=== PATIENT | male | born 1995 | race Hispanic/Latino ===

== ENCOUNTER 2017-04-23 13:34 | Emergency (ER) | payer BC ==
[2017-04-23 14:01] LABS: Bilirubin Small (Negative); Blood, Urine Negative (Negative); Glucose, Urine (Dipstick) Negative (Negative); Ketone, Urine Trace mg/dL (Negative); Nitrite Negative (Negative); Protein, Urine (Dipstick) 30 mg/dL (Neg-Trace)
[2017-04-23 14:06] LABS: Hyaline Casts/LPF 0-3 HYALINE CAST LPF (0-3 Hyaline); RBC/HPF 0-3 HPF (0-3); Sperm/HPF Rare HPF (None Seen); Squamous Epithelial 0-3 HPF (0-3); WBC/HPF 0-3 HPF (0-3)
--- NOTE | 2017-04-23 14:53 | ULT ---
TESTICULAR ULTRASOUND SCROTAL ULTRASOUND: History: Left testicular and scrotal pain. Technique: Multiplanar grayscale and color doppler images were obtained in a bilateral testicular/sc rotal ultrasound. Spectral analysis of the doppler waveforms were performed. FINDINGS: The testicles were normal in echogenicity without focal lesions and demonstrate normal and symmetric flow. A few punctate scattered calcifications are seen in the left testicle, but not enough are pre sent to consider testicular microlithiasis. There is a small left vericocele. The epididymi are normal in appearance and demonstrate normal inte rnal flow. IMPRESSION: 1. No significant testicular or epididymal abnormality. 2. Small left vericocele. POS: [facility]
== END 2017-04-23 15:20 | disposition home or self-care (01) ==
LOC: SCSER 13:34
DX: N50.812 Left testicular pain (principal)
CPT/HCPCS: 76870; 81003; 81015; 87491; 87591; 93976